=== PATIENT | female | born 1965 | race Caucasian/White ===

== ENCOUNTER → 2019-02-11 | Outpatient (CLI) | payer OTHER ==
--- NOTE | 2019-02-11 17:14 | PCVCIMAG ---
APPROVED REPORT Study performed: 02/11/2019 10:45:05 Exam: Stress Echocardiogram Indication: Chest pain, fam hx cad, abn ekg Patient Location: Echo lab Stress Nurse: Salena Sellers RN Status: routine Ht: 5 ft 5 in HR: 71 bpm BP: 134/80 mmHg Rhythm: NSR Procedure The patient underwent an Exercise Stress Test using the Ángel Protocol. Blood pressure, heart rate, and EKG were monitored. An Echocardiogram was performed by oil field technician in four stages in quad fashion. At peak stress, four selected images were obtained and placed side by side with resting images for comparison. Stress Test Details Stress Test: Exercise stress testing was performed using a Ángel protocol. HR Resting HR: 71 bpmMax Heart Rate (APMHR): 165 bpm Max HR Achieved: 169 bpmTarget HR (85% APMHR): 140 bpm % of APMHR: 102 Recovery HR: 87 bpm HR response to stress: Normal HR response to stress BP Resting BP: 134/80 mmHg Max BP: 174/84 mmHg Recovery BP: 120/80 mmHg BP response to stress: Normal blood pressure response to stress. ECG Resting ECG: Sinus Rhythm Stress ECG: Sinus Rhythm ST Change: Normal Arrhythmia: occasional PVCs Recovery ECG: Sinus Rhythm Recovery ST Change: Normal Recovery Arrhythmia: rare PVC Clinical Reason for Termination: Maximal effort Stress Symptoms: Dyspnea Exercise duration: 12 min 40 sec Highest Stage Achieved: Stage 5: 5.0 mph at 18% grade. Exercise capacity: 15.9 METs Overall Exercise Capacity for Age: Good Scale: Active Angina Score: None Pre-Stress Echo The resting Echocardiogram showed normal left ventricular contractility with an estimated Ejection Fraction of about 50-55%. The resting echocardiogram demonstrated normal wall motion in all wall segments. Post-Stress Echo The stress Echocardiogram showed normal left ventricular contractility with an estimated Ejection Fraction of about 60-65%. Compared to rest, there were no stress-induced wall motion abnormalities. Clinical No clinical or ECG evidence for ischemia. Conclusion Clinical Response: Non-ischemic Exercise Capacity: Average Stress ECG Response: Non-ischemic Stress Echo Images: Non-ischemic The left ventricle is normal in size and wall thickness in both the rest and stress images. Normal aortic valve. Trace mitral regurgitation with mitral valve prolapse. Mild tricuspid regurgitation with PAP of 29 mmHg. Mild pulmonic regurgitation. Other Information Study Quality: Adequate <Conclusion> The left ventricle is normal in size and wall thickness in both the rest and stress images. Normal aortic valve. Trace mitral regurgitation with mitral valve prolapse. Mild tricuspid regurgitation with PAP of 29 mmHg. Mild pulmonic regurgitation.
== END | disposition home or self-care (01) ==
LOC: PCVCIMAG 02-10 10:48
PROVIDERS: ATTEND Internal Medicine Cardiovascular Disease
DX: R07.9 Chest pain, unspecified (principal); R06.02 Shortness of breath; Z82.49 Family history of ischemic heart disease and other diseases of the circulatory system
CPT/HCPCS: 93325; 93351